=== PATIENT | female | born 1940 | race Caucasian/White ===

== ENCOUNTER 2018-12-19 09:52 | Emergency (ER) | payer MEDICARE, OTHER ==
[2018-12-19 11:57] VITALS: BP 144/67
--- NOTE | 2018-12-19 12:15 | UC ---
General HPI - HPI Summary HPI Summary: cough with congestion x 3 days. the cough got worse a day or two into this illness. admits to a wheeze at the end of her cough. no cp, sob, copd/asthma or fever. prior hx of pneumonia. - History of Current Complaint Chief Complaint: UCRespiratory Stated Complaint: COUGH Time Seen by Provider: 12/19/18 11:50 Hx Obtained From: Patient Onset/Duration: Gradual Onset Pain Intensity: 3 Associated Signs & Symptoms: Positive: Cough, Wheezing. Negative: Chest Pain, Fever, SOB - Allergy/Home Medications Allergies/Adverse Reactions: Allergies Allergy/AdvReac Type Severity Reaction Status Date / Time [id number] Reductase AdvReac Severe Fatigue Verified 12/19/18 11:44 Inhibitor Home Medications: Home Medications Ubidecarenone [Coq10] 100 mg PO DAILY 12/19/18 [History Confirmed 12/19/18] PMH/Surg Hx/FS Hx/Imm Hx Respiratory History: Pneumonia GI/ History: Other - colon CA - Surgical History Surgical History: Yes Surgery Procedure, Year, and Place: lumbar laminectomy-2006- [facility]. cataract surgery- 2011 & 2014 [facility]. macular puckering surgery- 2013- [facility]. colon resection 2014- [facility] - Family History Known Family History: Positive: Non-Contributory - Social History Occupation: Retired Alcohol Use: Daily Alcohol Amount: 1 glass of wine a day Substance Use Type: None Smoking Status (MU): Never Smoked Tobacco Review of Systems All Other Systems Reviewed And Are Negative: Yes Physical Exam Triage Information Reviewed: Yes Appearance: Well-Appearing Vital Signs: Initial Vital Signs Temp 98.2 F 12/19/18 11:48 Pulse 70 12/19/18 11:48 Resp 20 12/19/18 11:48 BP 144/67 12/19/18 11:48 Pulse Ox 97 12/19/18 11:48 Vital Signs Reviewed: Yes Eyes: Positive: Conjunctiva Clear ENT: Positive: Pharynx normal, TMs normal. Negative: Nasal congestion, Nasal drainage Neck: Positive: Supple, Nontender, No Lymphadenopathy Respiratory: Positive: No respiratory distress, Decreased breath sounds, Other: - Coarse congested cough. Cardiovascular: Positive: RRR, No Murmur Abdomen Description: Positive: Nontender, No Organomegaly, Soft Bowel Sounds: Positive: Present Musculoskeletal: Positive: ROM Intact Neurological: Positive: Alert Psychological: Positive: Age Appropriate Behavior Skin Exam: Normal Diagnostics - Radiology No standard instances Radiology Interpretation Completed By: Radiologist - CXR=HYPERINFLATION, CONSISTENT WITH COPD. NO ACTIVE CARDIOPULMONARY DISEASE. Course/Dx - Course Course Of Treatment: nebulizer tx offered but pt declined. NO HX COPD BUT CXR SUGGESTS IT IS POSSIBLE THUS WILL TX WITH AN ANTIBIOTIC. NO HX HTN THUS BP IS PROBABLY ILLNESS RELATED. WILL HAVE BP RECHECK ON F/U VISIT. - Differential Dx - Multi-Symptom Differential Diagnoses: Other - NO CM, INFILTRATE OR CHF ON CXR. HYPERINFLATION SEEN THUS POSSIBLE COPD BUT NO PRIOR HX. - Diagnoses Provider Diagnosis: Cough, Bronchospasm, acute Discharge - Sign-Out/Discharge Documenting (check all that apply): Patient Departure All imaging exams completed and their final reports reviewed: Yes - Discharge Plan Condition: Stable Disposition: HOME Prescriptions: Albuterol HFA INHALER* [Ventolin HFA Inhaler*] 2 puff INH Q6H #1 mdi Azithromycin TAB* [Zithromax TAB (Z-JANET) 250 mg #6 tabs] 2 tab PO .TODAY, THEN 1 DAILY #1 janet predniSONE [Prednisone 20 MG TAB] 40 mg PO DAILY 3 Days #6 tablet Patient Education Materials: Bronchospasm (ED), Acute Cough (ED) Referrals: Valentina Lugo MD [Primary Care Provider] - Additional Instructions: FOLLOW UP WITH PRIMARY CARE IN 7 DAYS FOR A RECHECK OR SOONER IF WORSE. HAVE THEM RECHECK YOUR BP. BP TODAY WAS 144/67 - Billing Disposition and Condition Condition: STABLE Disposition: Home
== END 2018-12-19 12:53 | disposition home or self-care (01) ==
LOC: UCCORT 09:52
DX: J98.01 Acute bronchospasm (principal); R05 Cough; Z88.8 Allergy status to other drugs, medicaments and biological substances
CPT/HCPCS: 71046; 99212; G0463